=== PATIENT | female | born 1980 | race Caucasian/White ===

== ENCOUNTER 2021-12-31 22:27 | Emergency (ER) | payer BC, SELFPAY ==
--- NOTE | ~2021-12-31 | XR_ITS ---
XR ankle LT min 3V, XR foot LT min 3V 12/31/2021 23:27 Indication: Left foot and ankle pain after fall Procedure: 4 views left ankle and 4 views left foot Comparison: No prior studies for comparison. Findings: There are marginal avulsion fractures which are mildly displaced at the proximal aspect of the fourth and fifth proximal phalanges. Lisfranc joint intact. No other fracture is identified. Ankl e mortise intact. Mild lateral soft tissue swelling. Impression: 1: Mildly displaced marginal avulsion fractures base of the left fourth and fifth proximal phalanges. Reviewed, dictated and finalized at location A. Impression: 1: Mildly displaced marginal avulsion fractures base of the left fourth and fif th proximal phalanges. Impression: 1: Mildly displaced marginal avulsion fractures base of the left fourth and fif th proximal phalanges.
[2021-12-31 22:32] VITALS: BP 124/80; PULSE 85; RESP 20; TEMP 36.5; O2SAT 96
--- NOTE | 2021-12-31 23:06 | ED.GENADULT ---
HPI - General Adult General Chief complaint: Fall Stated complaint: left foot pain/fall Time Seen by Provider: 12/31/21 22:52 History of Present Illness HPI narrative: 41-year-old female presenting to the emergency department for evaluation after having a fall down multiple steps. Patient states to walk down the steps when part of the step broke causing her to fall forward. Patient attempted to catch herself with her arms but her foot got caught and ultimately she did fall down the stairs. Patient's primary complaint is left ankle left foot pain. Patient denies striking her head denies loss of consciousness. Related Data Allergies Allergy/AdvReac Type Severity Reaction Status Date / Time adhesive tape Allergy Mild Verified 08/12/09 21:48 ciprofloxacin Allergy Mild Verified 06/13/09 11:54 DERMABOND Allergy Mild Uncoded 08/12/09 21:48 Review of Systems Review of Systems: CONSTITUTIONAL: Denies fever, chills, or sweats. EYES: Denies visual changes, redness, or discharge. ENT: Denies rhinorrhea, congestion, sore throat, or otalgia. CARDIOVASCULAR: Denies chest pain, palpitations, or edema. RESPIRATORY: Denies cough or dyspnea. GASTROINTESTINAL: Denies abdominal pain, nausea, vomiting, or diarrhea. GENITOURINARY: Denies dysuria or hematuria. SKIN: Denies rash or itching. MUSCULOSKELETAL: See HPI NEUROLOGIC: Denies headache, numbness, or weakness. Exam Narrative: APPEARANCE: Well appearing, no pain, no distress, well-nourished. HEAD: normocephalic, atraumatic. EYES: PERRLA/EOMI, conjunctivae clear. NOSE: Normal no drainage NECK: Supple. No adenopathy, no masses. RESPIRATORY: Airway patent, respirations nonlabored. Clear to auscultation bilaterally, no rales, rhonchi, wheezing. CARDIOVASCULAR: Regular rate and rhythm without murmurs rubs or gallops. ABDOMINAL: Soft, nontender, nondistended, normal bowel sounds MUSCULOSKELETAL: Moderate tenderness to wrist bilaterally with normal range of motion. No tenderness to palpation of wrists or hands bilaterally. Patient also reports some left shoulder pain but patient has been range of motion with no tenderness to palpation. Patient has no tenderness of proximal left tib-fib but does have tenderness of the ankle and foot on the left side. NEURO: Alert. Cranial nerves II through XII intact. Grossly intact SKIN: Warm, dry. Normal Color Course Course Emergency Course: Patient was provided Leon wrap and crutches for the suspect ankle sprain. No fractures or dislocations were noted on the x-rays. Patient was encouraged with close follow-up with her primary care physician. Vital Signs Vital signs: Vital Signs Temperature 97.7 F 12/31/21 22:32 Pulse Rate 85 12/31/21 22:32 Respiratory Rate 20 12/31/21 22:32 Blood Pressure 124/80 12/31/21 22:32 Pulse Oximetry 96 12/31/21 22:32 Oxygen Delivery Room Air 12/31/21 22:32 Temperature 97.7 F 12/31/21 22:32 Pulse Rate 85 12/31/21 22:32 Respiratory Rate 20 12/31/21 22:32 Blood Pressure 124/80 12/31/21 22:32 Pulse Oximetry 96 12/31/21 22:32 Oxygen Delivery Room Air 12/31/21 22:32 Medical Decision Making Vital Signs Vital Signs: Vital Signs Temperature 97.7 F 12/31/21 22:32 Pulse Rate 85 12/31/21 22:32 Respiratory Rate 20 12/31/21 22:32 Blood Pressure 124/80 12/31/21 22:32 Pulse Oximetry 96 12/31/21 22:32 Oxygen Delivery Room Air 12/31/21 22:32 Temperature 97.7 F 12/31/21 22:32 Pulse Rate 85 12/31/21 22:32 Respiratory Rate 20 12/31/21 22:32 Blood Pressure 124/80 12/31/21 22:32 Pulse Oximetry 96 12/31/21 22:32 Oxygen Delivery Room Air 12/31/21 22:32 Imaging Data My impression: Left ankle x-ray: No acute fracture or dislocation Left foot x-ray: No acute fracture or dislocation Discharge Plan Discharge Clinical Impression: Ankle strain Patient Disposition: Home, Self-Care Condition: Stable Instructions: Antibiotic Form, Ankle Sprai
== END 2022-01-01 00:22 | disposition home or self-care (01) ==
PROVIDERS: Emergency Provider Emergency Medicine
DX: S96.912A Strain of unspecified muscle and tendon at ankle and foot level, left foot, initial encounter (principal); W10.9XXA Fall (on) (from) unspecified stairs and steps, initial encounter
CPT/HCPCS: 73610; 73630; 99283

== ENCOUNTER 2022-01-03 23:03 | Emergency (ER) | payer BC, SELFPAY ==
--- NOTE | ~2022-01-03 | CT_ITS ---
EXAMINATION: CT facial bones wo con DATE: 01/04/2022 02:26 INDICATION: Jaw pain and swelling TECHNIQUE: Computed tomography (CT) of the facial bones was performed without intravenous contrast. T he dose-length product was 347.39 mGy-cm. Automated exposure control and iterative reconstruction carmine hnique were employed. COMPARISON: None FINDINGS: There is focal scalp swelling in the right frontal region. No underlying fracture or trauma tic malalignment. Orbits intact. Mandible and pterygoid plates are normal. Temporomandibular joints a re symmetric. No nasal fracture. Zygomatic arches are normal. Paranasal sinuses and mastoids are pneu matized. IMPRESSION: 1. No acute abnormality of the facial bones. Reviewed, dictated and finalized at location L.
[2022-01-03 23:15] VITALS: BP 128/90; PULSE 68; RESP 18; TEMP 36.7; O2SAT 100
[2022-01-04 02:41] VITALS: BP 122/84; PULSE 72; RESP 16; O2SAT 98
--- NOTE | 2022-01-04 03:24 | ED.GENADULT ---
HPI - General Adult General Chief complaint: Skin/Abscess/Foreign Body Stated complaint: fall, facial swelling Time Seen by Provider: 01/04/22 01:46 Source: patient and RN notes reviewed Mode of arrival: ambulatory Limitations: no limitations History of Present Illness HPI narrative: This is a 41 year old female who presents for evaluation of facial swelling after a fall. Patient fell down some stairs 3 days ago. She was evaluated for left foot pain. She states she was told her xrays for normal but she continues to have swelling and bruising. She is also here because she has notices swelling to right jaw and clicking . She is unsure is she hit her head or face when she feel down stairs. She denies LOC, nausea, vomiting or dizziness. She also denies ear discharge or nasal discharge. She also talks about have history of staph infection in her nose. She has red bump to her mid forehead. She denies fever, chills. Related Data Allergies Allergy/AdvReac Type Severity Reaction Status Date / Time adhesive tape Allergy Mild Unknown Verified 01/04/22 02:06 ciprofloxacin Allergy Mild Unknown Verified 01/04/22 02:06 adhesive Allergy Unknown Verified 01/04/22 02:06 amitriptyline Allergy Unknown Verified 01/04/22 02:06 clindamycin Allergy Unknown Verified 01/04/22 02:06 erenumab-aooe Allergy Unknown Verified 01/04/22 02:06 fremanezumab-vfrm Allergy Unknown Verified 01/04/22 02:06 iohexol Allergy Unknown Verified 01/04/22 02:06 [From contrast - CT, X-RAY] lamotrigine [From Lamictal] Allergy Unknown Verified 01/04/22 02:06 levetiracetam [From Keppra] Allergy Unknown Verified 01/04/22 02:06 morphine Allergy Unknown Verified 01/04/22 02:06 Penicillins Allergy Unknown Verified 01/04/22 02:06 prednisone Allergy Unknown Verified 01/04/22 02:06 vancomycin Allergy Unknown Verified 01/04/22 02:06 DERMABOND Allergy Unknown Unknown Uncoded 01/04/22 02:06 Course Reevaluation(s) Reevaluation #1: I discussed with patient that CT did not show any fracture. She would like post op shoe for her left foot. I discussed xray from last hospitalization for avulsion fracture to 4/5th proximal phalanx Date: 01/04/22 Time: 04:08 Vital Signs Vital signs: Vital Signs Temperature 98.0 F 01/03/22 23:15 Pulse Rate 68 01/03/22 23:15 Respiratory Rate 18 01/03/22 23:15 Blood Pressure 128/90 01/03/22 23:15 Pulse Oximetry 100 01/03/22 23:15 Oxygen Delivery Room Air 01/03/22 23:15 Temperature 98.0 F 01/03/22 23:15 Pulse Rate 83 01/04/22 04:29 Respiratory Rate 16 01/04/22 04:29 Blood Pressure 121/98 H 01/04/22 04:29 Pulse Oximetry 99 01/04/22 04:29 Oxygen Delivery Room Air 01/03/22 23:15 Medical Decision Making Vital Signs Vital Signs: Vital Signs Temperature 98.0 F 01/03/22 23:15 Pulse Rate 68 01/03/22 23:15 Respiratory Rate 18 01/03/22 23:15 Blood Pressure 128/90 01/03/22 23:15 Pulse Oximetry 100 01/03/22 23:15 Oxygen Delivery Room Air 01/03/22 23:15 Temperature 98.0 F 01/03/22 23:15 Pulse Rate 83 01/04/22 04:29 Respiratory Rate 16 01/04/22 04:29 Blood Pressure 121/98 H 01/04/22 04:29 Pulse Oximetry 99 01/04/22 04:29 Oxygen Delivery Room Air 01/03/22 23:15 Lab Data Lab results reviewed: Yes I reviewed the patient's lab results. Imaging Data Attestation: I personally reviewed and interpreted this imaging study as follows: Radiologist's impression: CT facial No acute fractrue or dislocation Discharge Plan Discharge Clinical Impression: Swelling of right side of face Toe fracture, left Qualifiers: Encounter type: initial encounter Fracture type: closed Phalanx: proximal Patient Disposition: Home, Self-Care Condition: Stable Instructions: Antibiotic Form, Toe Fracture (ED) Additional Instructions: Follow up with your primary care provider back home. 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 Take ibuprofen for your pain Follow-up/Refer
[2022-01-04 04:29] VITALS: BP 121/98; PULSE 83; RESP 16; O2SAT 99
== END 2022-01-04 04:30 | disposition home or self-care (01) ==
PROVIDERS: Emergency Provider General Practice
DX: R22.0 Localized swelling, mass and lump, head (principal); S92.512A Displaced fracture of proximal phalanx of left lesser toe(s), initial encounter for closed fracture; W10.9XXA Fall (on) (from) unspecified stairs and steps, initial encounter
CPT/HCPCS: 70486; 99284

== ENCOUNTER 2022-06-17 16:31 | Emergency (ER) | payer BC, SELFPAY ==
--- NOTE | ~2022-06-17 | XR_ITS ---
EXAMINATION: XR chest 2V 06/17/2022 17:45 INDICATION: Chest pain PROCEDURE: 2 view chest COMPARISON: No prior studies for comparison. FINDINGS: The lungs are clear. The cardiomediastinal silhouette is within normal limits. There are no pleural effusions. There is no pneumothorax suspected. IMPRESSION: 1: NO ACUTE CARDIOPULMONARY DISEASE. Reviewed, dictated and finalized at location A. [employer] WORKER
[2022-06-17 16:48] VITALS: BP 119/81; PULSE 108; RESP 18; TEMP 36.9; O2SAT 100
--- NOTE | 2022-06-17 16:52 | ECG_ITS ---
Measurements Intervals [place] Rate: 101 P: 24 WI: 141 QRS: 52 QRSD: 78 T: 4 QT: 344 QTc: 447 Interpretive Statements SINUS TACHYCARDIA BORDERLINE ST-T WAVE ABNORMALITY- ANT/INF LEADS BORDERLINE ECG NO PREVIOUS ECG AVAILABLE FOR COMPARISON Electronically Signed On 06-17-2022 16:58:26 [employer]UNSTOCK REPAIR[employer] by Matias Bishop D.O.
--- NOTE | 2022-06-17 17:41 | ED.URI ---
HPI - URI/Sore Throat General Chief Complaint: Upper Respiratory Infection Stated Complaint: chest discomfort - flu + Time Seen by Provider: 06/17/22 17:34 History of Present Illness HPI Narrative: 41-year-old female history of asthma presents to the emergency room for evaluation of chest tightness. Patient also complaining of body aches, headaches, increased shortness of breath and malaise. Patient states she was seen in urgent care 3 hours prior to arrival and was diagnosed with influenza. Patient states her smart watch told her she was in A. fib. Patient has no history of atrial fibrillation. Denied any chest pain or palpitations. Patient states she has not taken any medications for her body aches. Was placed on an inhaler by the urgent care for her chest tightness. Related Data Allergies Allergy/AdvReac Type Severity Reaction Status Date / Time adhesive tape Allergy Mild Unknown Verified 06/17/22 17:35 ciprofloxacin Allergy Mild Unknown Verified 06/17/22 17:35 adhesive Allergy Unknown Verified 06/17/22 17:35 amitriptyline Allergy Unknown Verified 06/17/22 17:35 clindamycin Allergy Unknown Verified 06/17/22 17:35 erenumab-aooe Allergy Unknown Verified 06/17/22 17:35 fremanezumab-vfrm Allergy Unknown Verified 06/17/22 17:35 iohexol Allergy Unknown Verified 06/17/22 17:35 [From contrast - CT, X-RAY] lamotrigine [From Lamictal] Allergy Unknown Verified 06/17/22 17:35 levetiracetam [From Keppra] Allergy Unknown Verified 06/17/22 17:35 morphine Allergy Unknown Verified 06/17/22 17:35 Penicillins Allergy Unknown Verified 06/17/22 17:35 prednisone Allergy Unknown Verified 06/17/22 17:35 vancomycin Allergy Unknown Verified 06/17/22 17:35 DERMABOND Allergy Unknown Unknown Uncoded 01/04/22 02:06 Review of Systems Review of Systems: CONSTITUTIONAL: Denies fever, chills, or sweats. EYES: Denies visual changes, redness, or discharge. ENT: Denies rhinorrhea, congestion, sore throat, or otalgia. CARDIOVASCULAR: Reports chest tightness RESPIRATORY: Denies cough or dyspnea. GASTROINTESTINAL: Denies abdominal pain, nausea, vomiting, or diarrhea. GENITOURINARY: Denies dysuria or hematuria. SKIN: Denies rash or itching. MUSCULOSKELETAL: Denies back pain, joint pain, or myalgia. NEUROLOGIC: Denies headache, numbness, dizziness, or weakness. PSYCHIATRIC: Denies anxiety or depression. Exam Narrative: GENERAL: Well-appearing, well-nourished, no physical limitations, and in no acute distress. HEAD: Normocephalic, atraumatic. EYES: Conjunctivae normal, PERRLA and EOMI. ENT: External nose normal, Nares clear, no rhinorrhea or epistaxis. Mucous membranes moist. Oropharynx without tonsillar hypertrophy exudate or other lesions. External ears normal, bilateral TMs normal bilaterally CHEST: Clear to auscultation. No respiratory distress. No wheezes rales or rhonchi. No tenderness. HEART: Tachycardic with regular rhythm, no murmur heard. Normal peripheral pulses. ABDOMEN: Soft, nontender, nondistended, normal active bowel sounds. EXTREMITIES: Normal range of motion. No edema. No clubbing or cyanosis SKIN: Warm, dry, no rash. No noted wounds NEURO: No focal deficits. Alert and oriented x3. MAEW. CN's II-XI intact bilaterally, normal gait PSYCH: Cooperative. Normal mood and affect. Course Vital Signs Vital signs: Vital Signs Temperature 36.9 C 06/17/22 16:48 Pulse Rate 108 H 06/17/22 16:48 Respiratory Rate 18 06/17/22 16:48 Blood Pressure 119/81 06/17/22 16:48 Pulse Oximetry 100 06/17/22 16:48 Oxygen Delivery Room Air 06/17/22 16:48 Temperature 36.9 C 06/17/22 16:48 Pulse Rate 108 H 06/17/22 16:48 Respiratory Rate 18 06/17/22 16:48 Blood Pressure 119/81 06/17/22 16:48 Pulse Oximetry 100 06/17/22 16:48 Oxygen Delivery Room Air 06/17/22 17:35 MDM - URI/Sore Throat MDM Narrative Medical decision making narrative: 41-year-old female presented with symptoms suspicious for likely viral upp
[2022-06-17] MEDS: ACETAMINOPHEN 500 MG TABLET 1000 MG PO (18:03)
== END 2022-06-17 18:09 | disposition home or self-care (01) ==
LOC: ANHED 18:30
PROVIDERS: Emergency Provider Nurse Practitioner Family
DX: J11.1 Influenza due to unidentified influenza virus with other respiratory manifestations (principal); J45.909 Unspecified asthma, uncomplicated; R00.0 Tachycardia, unspecified; R94.31 Abnormal electrocardiogram [ECG] [EKG]
CPT/HCPCS: 71046; 93005; 99283; A9270